=== PATIENT | female | born 1975 ===

== ENCOUNTER 2017-07-26 12:45 | Inpatient (IN) | payer OTHER ==
[~2017-07-26] VITALS: Ht 165.1 cm; Wt 98.4 kg
[2017-07-26] MEDS ORDERED: TOPROL XL25 MG PO (13:46)
[2017-07-26] MEDS ORDERED: CYMBALTA30 MG PO (13:46)
[2017-07-26] MEDS ORDERED: LEVO-T25 MCG PO (13:46)
[2017-07-26] MEDS ORDERED: VITAMIN D250000 UNIT PO (13:47)
[2017-08-03] MEDS ORDERED: DOCUSATE SODIU100 MG PO (09:06)
[2017-08-03] MEDS ORDERED: GABAPENTIN800 MG PO (09:06)
[2017-08-03] MEDS ORDERED: AMOX-CLAV 875-1 EACH PO (09:07)
[2017-08-03] MEDS ORDERED: CLONAZEPAM1 MG PO (09:08)
[2017-08-03] MEDS ORDERED: PERCOCET 5-3251 EACH PO (09:08)
== END 2017-08-03 11:41 | disposition home or self-care (01) | DRG 460 ==
LOC: O/R 08-02 04:40 → PED 08-02 04:40 → SURG 08-02 10:30 → PED 08-03 11:41
PROVIDERS: Orthopaedic Surgery Orthopaedic Surgery of the Spine
PROC: 0SG00AJ Fusion of Lumbar Vertebral Joint with Interbody Fusion Device, Posterior Approach, Anterior Column, Open Approach (ICD-10-PCS; 2017-08-02)
PROC: 0ST20ZZ Resection of Lumbar Vertebral Disc, Open Approach (ICD-10-PCS; 2017-08-02)
PROC: 07DS3ZZ Extraction of Vertebral Bone Marrow, Percutaneous Approach (ICD-10-PCS; 2017-08-02)
PROC: 0SG00A0 Fusion of Lumbar Vertebral Joint with Interbody Fusion Device, Anterior Approach, Anterior Column, Open Approach (ICD-10-PCS; principal; 2017-08-02 10:30)
DX: M47.16 Other spondylosis with myelopathy, lumbar region (principal); M48.061 Spinal stenosis, lumbar region without neurogenic claudication; M51.16 Intervertebral disc disorders with radiculopathy, lumbar region; E03.8 Other specified hypothyroidism; I10 Essential (primary) hypertension